=== PATIENT | female | born 1970 | race Hispanic/Latino ===

== ENCOUNTER 2017-12-31 19:02 | Emergency (ER) | payer MEDICARE, MEDICAID ==
[~2017-12-31] VITALS: Ht 157.5 cm; Wt 125.0 kg
[~2017-12-31 19:02] MED LIST: NAPROSYN500 MG OR; NO MEDS; ZPAK OR
[2017-12-31] MEDS ORDERED: IBUPROFEN600 MG PO (20:26)
[2017-12-31 20:41] VITALS: BP 130/78
== END 2017-12-31 20:35 | disposition home or self-care (01) ==
LOC: ED 19:02
DX: M25.561 Pain in right knee (principal)

== ENCOUNTER 2019-08-19 20:46 | Emergency (ER) | payer MEDICARE, MEDICAID ==
[~2019-08-19] VITALS: Ht 157.5 cm; Wt 100.0 kg
[~2019-08-19 20:46] MED LIST changes: +IBUPROFEN600 MG PO
[2019-08-19] MEDS ORDERED: B121000 MCG (21:03)
[2019-08-19] MEDS ORDERED: D3400 UNIT PO (21:04)
[2019-08-19] MEDS ORDERED: NAPROXEN500 MG PO (21:50)
[2019-08-19 21:52] VITALS: BP 143/73
== END 2019-08-19 21:52 | disposition home or self-care (01) ==
LOC: ED 20:46
DX: M17.12 Unilateral primary osteoarthritis, left knee (principal); M76.9 Unspecified enthesopathy, lower limb, excluding foot

== ENCOUNTER 2020-03-20 16:20 | Emergency (ER) | payer MEDICARE, MEDICAID ==
[~2020-03-20 16:20] MED LIST changes: +B121000 MCG; +D3400 UNIT PO; +NAPROXEN500 MG PO
[2020-03-20 17:02] LABS: HEMATOCRIT 37.4 % (37.0-47.0); HEMOGLOBIN 12.1 g/dl (12.0-16.0); IMMATURE GRANULOCYTES 0.4 % (0.0-5.0); MEAN CELL VOLUME 80.1 fL CALC (80.0-100.0); MEAN CORPUSCULAR HGB 25.9 pG CALC (26.0-32.0); MEAN CORPUSCULAR HGB CONC 32.4 g/dL CAL (32.0-36.0); NEUT# 7.35 thou/uL (2.00-7.15); RED BLOOD COUNT 4.67 mill/uL (4.20-5.60); RED CELL DISTRI WIDTH 14.1 % (11.5-15.5)
[2020-03-20 17:04] LABS: URINE BLOOD DIPSTICK NEGATIVE (NEGATIVE); URINE COLOR YELLOW; URINE GLUCOSE - DIPSTICK NEGATIVE (NEGATIVE); URINE KETONE NEGATIVE (NEGATIVE); URINE LEUK ESTERASE NEGATIVE (NEGATIVE); URINE NITRITE - DIPSTICK NEGATIVE (Negative); URINE PH 5.5 (4.5-8.0); URINE PROTEIN - DIPSTICK 30 mg/dL (NEG-TRACE); URINE SPECIFIC GRAVITY >=1.030
[2020-03-20 17:07] LABS: URINE AMORPH SEDIMENT FEW hpf (NONE-FEW); URINE BILIRUBIN - DIPSTICK NEGATIVE (NEGATIVE); URINE MUCUS FEW hpf (NONE-FEW); URINE RBC 0-2 RBC/hpf (0-5); URINE SQUAMOUS EPITHELIAL CELL FEW EPI/hpf (0-FEW); URINE WBC 0-2 WBC/hpf (0-5)
[2020-03-20 17:18] LABS: ALBUMIN 4.6 g/dL (3.2-5.0); ALKALINE PHOSPHATASE 140 u/l (38-126); ANION GAP 16 (6-22 (CALC)); BILIRUBIN, TOTAL 0.6 mg/dL (0.0-1.4); BUN 13 mg/dL (7-17); BUN/CREATININE RATIO 21 (12-20 (CALC)); CARBON DIOXIDE 22 mmol/l (22-30); CHLORIDE 104 mmol/l (95-108); CREATININE 0.6 mg/dL (0.5-1.0); GFR > 60 ML/MIN (>=60 (CALC)); GFR FOR AFR.AMER. > 60 ML/MIN (>=60 (CALC)); LIPASE 75 u/l (23-300); SGOT/AST 43 u/l (14-36); SODIUM 139 mmol/l (137-146); TOTAL PROTEIN 8.2 g/dL (6.3-8.2)
[2020-03-20 17:19] LABS: POTASSIUM 3.4 mmol/l (3.5-5.1)
[2020-03-20] MEDS ORDERED: ONDANSETRON4 MG PO (18:52)
[2020-03-20 19:17] VITALS: BP 137/60
== END 2020-03-20 19:17 | disposition home or self-care (01) ==
LOC: ED 16:20
PROVIDERS: Family Medicine
DX: R10.13 Epigastric pain (principal); R10.11 Right upper quadrant pain; R11.2 Nausea with vomiting, unspecified; R19.7 Diarrhea, unspecified
CPT/HCPCS: Q9967

== ENCOUNTER 2023-01-09 09:53 | Emergency (ER) | payer MEDICARE, MEDICAID ==
[~2023-01-09] VITALS: Ht 157.5 cm; Wt 121.5 kg
[~2023-01-09 09:53] MED LIST changes: +ONDANSETRON4 MG PO
[2023-01-09 10:44] VITALS: BP 174/73
[2023-01-09 11:00] VITALS: BP 168/68
[2023-01-09 11:15] VITALS: BP 177/66
[2023-01-09 11:30] VITALS: BP 179/76
[2023-01-09 13:37] VITALS: BP 177/66
== END 2023-01-09 13:41 | disposition home or self-care (01) ==
LOC: ED 09:53
DX: M79.662 Pain in left lower leg (principal); M79.661 Pain in right lower leg; M79.89 Other specified soft tissue disorders; S80.12XA Contusion of left lower leg, initial encounter; S80.11XA Contusion of right lower leg, initial encounter; X58.XXXA Exposure to other specified factors, initial encounter

== ENCOUNTER 2023-11-03 13:10 | Emergency (ER) | payer MEDICARE, MEDICAID ==
[2023-11-03] VITALS (7 sets, daily range): BP systolic 111–136; BP diastolic 55–72
[~2023-11-03] VITALS: Ht 157.5 cm; Wt 124.0 kg
[2023-11-03 14:54] LABS: BASO% 0.1 % (0-3); EOS% 0.6 % (0-8); HEMATOCRIT 40.1 % (37.0-47.0); HEMOGLOBIN 12.7 g/dl (12.0-16.0); IMMATURE GRANULOCYTES 0.3 % (0.0-5.0); MEAN CELL VOLUME 84.1 fL CALC (80.0-100.0); MEAN CORPUSCULAR HGB 26.6 pG CALC (26.0-32.0); MEAN CORPUSCULAR HGB CONC 31.7 g/dL CAL (32.0-36.0); MONO% 4.4 % (2-13); NEUT# 6.89 thou/uL (2.00-7.15); NEUT% 76.6 % (42-76); RED BLOOD COUNT 4.77 mill/uL (4.20-5.60)
[2023-11-03 15:19] LABS: ALBUMIN 4.4 g/dL (3.2-5.0); ALKALINE PHOSPHATASE 116 u/l (38-126); ANION GAP 14 (6-22 (CALC)); BILIRUBIN, TOTAL 0.6 mg/dL (0.02-1.3); BUN 14 mg/dL (7-17); BUN/CREATININE RATIO 25 (12-20 (CALC)); CARBON DIOXIDE 24 mmol/l (22-30); CHLORIDE 106 mmol/l (95-108); CREATININE 0.6 mg/dL (0.5-1.0); GFR FOR AFR.AMER. > 60 ML/MIN (>=60 (CALC)); GFR OTHER RACES > 60 ML/MIN (>=60 (CALC)); LIPASE 93 u/l (23-300); POTASSIUM 3.9 mmol/l (3.5-5.1); SGOT/AST 72 u/l (14-36); SODIUM 139 mmol/l (137-146); TOTAL PROTEIN 7.9 g/dL (6.3-8.2)
[2023-11-03] MEDS ORDERED: OMEPRAZOLE DR40 MG PO (18:12)
== END 2023-11-03 18:22 | disposition home or self-care (01) ==
LOC: ED 13:10
PROVIDERS: Family Medicine
DX: R10.31 Right lower quadrant pain (principal); R19.7 Diarrhea, unspecified; E66.9 Obesity, unspecified
CPT/HCPCS: Q9967